=== PATIENT | female | born 1965 | race Caucasian/White ===

== ENCOUNTER 2016-10-02 23:03 | Emergency (ER) | payer SELFPAY ==
[2016-10-03 00:09] VITALS: BP 130/87; PULSE 57; TEMP 98.1; BMI 31.4
--- NOTE | 2016-10-03 01:35 | PDOC ---
History of Present Illness - General Chief Complaint: Pain Stated Complaint: CHEST/BACK PAIN Time Seen by Provider: 10/03/16 01:08 History Source: Patient, Family Exam Limitations: No Limitations, Language Barrier (Granddaughter translates) - History of Present Illness Initial Comments: 10/03/16 01:35 The patient is a 51F with no PMH who presents to the ED with 1.5 days of pain on her R side. The pain is in her back and radiates to her head and down her leg. The pain is paraspinal. There is no one point which hurts the most. She is present with her daughter and granddaughter (granddaughter is translating). No fever, chills. She feels slightly nauseous. All: none Past History - Past Medical History Allergies/Adverse Reactions: Allergies Allergy/AdvReac Type Severity Reaction Status Date / Time No Known Allergies Allergy Verified 10/03/16 01:27 Home Medications: Ambulatory Orders NK [No Known Home Medication] 10/03/16 - Psycho/Social/Smoking Cessation Hx Suicidal Ideation: No Smoking History: Never smoked Have you smoked in the past 12 months: No Information on smoking cessation initiated: No Hx Alcohol Use: No Drug/Substance Use Hx: No Review of Systems - Review of Systems Able to Perform ROS?: Yes Is the patient limited Kyrgyz proficient: Yes Constitutional: No: Chills, Fever Respiratory: Yes: Shortness of Breath. No: Cough Cardiac (ROS): Yes: Chest Pain ABD/GI: Yes: Nausea. No: Constipated, Diarrhea, Vomiting : No: Burning, Dysuria Neurological: Yes: Headache. No: Numbness, Tingling, Weakness *Physical Exam - Vital Signs Last Vital Signs Temp Pulse Resp BP Pulse Ox 98.1 F 57 L 14 130/87 100 10/03/16 00:06 10/03/16 00:06 10/03/16 00:06 10/03/16 00:06 10/03/16 00:06 - Physical Exam General Appearance: Yes: Nourished, Appropriately Dressed HEENT: positive: Normal Voice, Hearing Grossly Normal Neck: positive: Tender lateral Respiratory/Chest: positive: Lungs Clear, Normal Breath Sounds. negative: Chest Tender, Respiratory Distress, Accessory Muscle Use, Labored Respiration, Paradoxal Breathing, Crackles, Rales, Rhonchi, Stridor, Wheezing Cardiovascular: positive: Regular Rhythm, S1, S2, Bradycardia. negative: Diastolic Murmur, Systolic Murmur, Irregularly Irregular Gastrointestinal/Abdominal: positive: Flat, Soft. negative: Tender, Protuberent , Distended, Guarding, Rebound Musculoskeletal: positive: Vertebral Tenderness, Other (paraspinal tenderness on R back). negative: CVA Tenderness (R), CVA Tenderness (L) Extremity: negative: Swelling, Calf Tenderness Integumentary: positive: Dry, Warm. negative: Cold, Clammy, Swelling Neurologic: positive: Alert, Normal Mood/Affect, Motor Strength 5/5 Heart Score/ECG Review - ECG Intrepretation Rhythm: Regular Rhythm - ECG Impressions Normal ECG: Yes Bradycardia: Yes Comment:: 10/03/16 01:39 sinus bradycardia ED Treatment Course - LABORATORY CBC & Chemistry Diagram: 10/03/16 02:00 10/03/16 02:00 Medical Decision Making - Medical Decision Making 10/03/16 01:48 The patient is a 51 F with no PMH who presents to the ED with R sided body pain. The pain started yesterday and goes from her head to her toe. I will work her up to r/o ACS, PE, and pulm infiltrate. Will reassess when labs return. 10/03/16 03:51 Patient's labs WNL. Instructed pt to follow up with PCP and take ibuprofen as needed for pain. *DC/Admit/Observation/Transfer Diagnosis at time of Disposition: Back pain Qualifiers: Back pain location: thoracic back pain Chronicity: acute Back pain laterality: right Qualified Code(s): M54.6 - Pain in thoracic spine - Discharge Dispostion Disposition: HOME Condition at time of disposition: Improved Admit: No - Patient Instructions Printed Discharge Instructions: Back Pain (Alternative Therapy), DI for Thoracic Back Pain Additional Instructions: Please return to the ER if symptoms persist, worsen, or if new symptoms arise. Please follow up with your primary care doctor about your symptoms. Please take ibuprofen as needed for pain. - Attestations Physician Attestion: 10/03/16 05:28 I, Dr. Nikos Ortega, attest that this document has been prepared under my direction and personally reviewed by me in its entirety. I further attest, that it accurately reflects all work, treatment, procedures, and medical decision- making performed by me.
--- NOTE | 2016-10-03 01:50 | PDOC ---
Attending Attestation - Resident Resident Name: Nikos Ortega - ED Attending Attestation I have performed the following: I have examined & evaluated the patient, The case was reviewed & discussed with the resident, I agree w/resident's findings & plan, Exceptions are as noted - HPI HPI: 10/03/16 01:48 Multiple complaints including chest pain at LSB. Pt denies medical history - Physicial Exam PE: 10/03/16 01:49 *Physical Exam General Appearance: Yes: Appropriately Dressed. No: Apparent Distress, Intoxicated HEENT: positive: EOMI, LUAN, Normal ENT Inspection, Normal Voice, TMs Normal, Pharynx Normal. negative: Pale Conjunctivae, Photophobia, Scleral Icterus (R), Scleral Icterus (L) Neck: positive: Trachea midline, Normal Thyroid, Supple. negative: Tender, Rigid, Carotid bruit, Stridor, Lymphadenopathy (R), Lymphadenopathy (L), Thyromegaly Respiratory/Chest: positive: Lungs Clear, Normal Breath Sounds. negative: Chest Tender, Respiratory Distress, Accessory Muscle Use, Labored Respiration, RES, Crackles, Rales, Rhonchi, Stridor, Wheezing, Dullness Cardiovascular: positive: Regular Rhythm, Regular Rate, S1, S2. negative: Edema , JVD, Murmur, Bradycardia, Tachycardia Vascular Pulses: Dorsalis-Pedis (R): 2+, Doralis-Pedis (L): 2+ Gastrointestinal/Abdominal: positive: Normal Bowel Sounds, Flat, Soft. negative : Tender, Organomegaly, Pulsatile Mass, Increased Bowel Sounds, Decreased BS, Distended, Guarding, Rebound, Hernia, Hepatomegaly, Spleenomegaly Lymphatic: negative: Adenopathy, Tenderness Musculoskeletal: positive: Normal Inspection. negative: CVA Tenderness, Decreased Range of Motion Extremity: positive: Normal Capillary Refill, Normal Inspection, Normal Range of Motion, Pelvis Stable. negative: Tender, Pedal Edema, Swelling, Erythema Integumentary: positive: Normal Color, Dry, Warm. 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 negative: EOM Palsy, Facial Droop, Sensory Deficit - Medical Decision Making 10/03/16 19:32 patient discharged to follow up primary care
[2016-10-03] MEDS ORDERED: KETOROLAC TROMETHAMINE 30 MG/1 ML VIAL IVPUSH ONE (02:06)
[2016-10-03] MEDS ORDERED: KETOROLAC TROMETHAMINE 30 MG/1 ML VIAL ONE (02:07)
[2016-10-03 02:09] LABS: BASOPHIL 0.9 % (0-2.0); EOSINOPHIL 8.6 % (0-4.5); MCH 30.4 pg (25.7-33.7); MCHC 34.3 g/dl (32.0-36.0); MEAN CELL VOLUME 88.6 fl (80-96); MEAN PLT VOLUME 8.3 fl (7.5-11.1); NEUTROPHILS 53.3 % (42.8-82.8); PLATELET COUNT 241 K/MM3 (134-434); RDW 12.8 % (11.6-15.6); WHITE BLOOD COUNT 6.1 K/mm3 (4.0-10.0)
[2016-10-03 02:36] LABS: ALBUMIN 4.2 g/dl (3.4-5.0); ANION GAP 7 (8-16); BILIRUBIN,TOTAL 0.4 mg/dL (0.2-1.0); CALCIUM 9.3 mg/dL (8.5-10.1); CO2 30 mmol/L (21-32); CPK 121 IU/L (26-192); CREATININE 0.7 mg/dL (0.55-1.02); GLUCOSE,RANDOM 100 mg/dL (74-106); SGOT/AST 16 U/L (15-37); SGPT/ALT 28 U/L (12-78); TOT PROT 7.5 g/dl (6.4-8.2)
[2016-10-03 02:38] LABS: ALK PHOS 137 U/L (45-117)
[2016-10-03 02:40] LABS: TROPONIN I < 0.02 ng/ml (0.00-0.05)
--- NOTE | 2016-10-03 10:51 | EKG ---
Test Reason : Blood Pressure : / mmHG Vent. Rate : 057 BPM Atrial Rate : 057 BPM P-R Int : 174 ms QRS Dur : 090 ms QT Int : 414 ms P-R-T Axes : 018 021 026 degrees QTc Int : 402 ms SINUS BRADYCARDIA OTHERWISE NORMAL ECG NO PREVIOUS ECGS AVAILABLE Confirmed by INDIRA MCDONNELL MD ([id number]) on 10/03/2016 10:51:19 AM Referred By: Confirmed By:INDIRA MCDONNELL MD
== END 2016-10-03 06:08 | disposition home or self-care (01) ==
LOC: JER 23:03
PROC: 3E0333Z Introduction of Anti-inflammatory into Peripheral Vein, Percutaneous Approach (ICD-10-PCS; principal; 2016-10-02)
DX: M54.6 Pain in thoracic spine (principal)
CPT/HCPCS: 36415; 71020-TC; 80053; 84484; 84703; 85025; 85379; 93005; 93010; 99284-25

== ENCOUNTER 2017-02-24 17:19 | Emergency (ER) | payer SELFPAY ==
[2017-02-24 17:30] VITALS: BMI 34.2
--- NOTE | 2017-02-24 17:31 | PDOC ---
Rapid Medical Evaluation Chief Complaint: Allergic Reaction Time Seen by Provider: 02/24/17 17:25 Medical Evaluation: Allergies Allergy/AdvReac Type Severity Reaction Status Date / Time No Known Allergies Allergy Verified 02/24/17 17:25 02/24/17 17:28 I have performed a brief in-person evaluation of this patient. The patient presents with a chief complaint of abdominal pain and shortness of breath after eating shrimp today. Also reports vomiting. Pertinent physical exam findings: leaning forward in wheelchair, rapid breathing appears anxious non tender abdomen but refuses to sit up due to abdominal pain I have ordered the following: iv access, if fluids The patient will proceed to the ED for further evaluation.
[2017-02-24] MEDS ORDERED: ONDANSETRON 4 MG/2 ML VIAL IVPUSH ONE (19:28)
[2017-02-24] MEDS ORDERED: SODIUM CHLORIDE 0.9% 1000 ML INFUS.BAG IV ONE (19:28)
[2017-02-24] MEDS ORDERED: ONDANSETRON 4 MG/2 ML VIAL ONE (19:38)
[2017-02-24] MEDS ORDERED: FAMOTIDINE 20 MG/50 ML IVPB 20 MG/50 ML MG IVPB ONE (19:38)
--- NOTE | 2017-02-24 19:49 | PDOC ---
History of Present Illness - General Chief Complaint: Allergic Reaction Stated Complaint: ALLERGIC REACTION Time Seen by Provider: 02/24/17 17:25 - History of Present Illness Initial Comments: 02/24/17 19:45 CHIEF COMPLAINT: abdominal pain, vomiting HISTORY OF PRESENT ILLNESS: 51 yo F with no PMH presents to fast track with nausea, vomiting, and abdominal pain x 2 hours s/p eating shrimp. Patient reports pain "all over stomach" and headache and dizziness. Patient denies diarrhea or rectal bleeding. PAST MEDICAL HISTORY: Denies past medical history FAMILY HISTORY: Denies SOCIAL HISTORY: Denies tobacco, alcohol, illicit drug use. SURGICAL HISTORY: Denies ALLERGIES: No known drug allergies REVIEW OF SYSTEMS General/Constitutional: Denies fever or chills. Denies weakness, weight change. HEENT: Denies change in vision. Denies ear pain or discharge. Denies sore throat. Cardiovascular: Denies chest pain or shortness of breath. Respiratory: Denies cough, wheezing, or hemoptysis. Gastrointestinal: Nausea, 2 episodes of vomiting. Denies diarrhea or constipation. Denies rectal bleeding. Genitourinary: Denies dysuria, frequency, or change in urination. Musculoskeletal: Denies joint or muscle swelling or pain. Denies neck or back pain. Neurologic: Headache, dizzines. Denies loss of consciousness, or loss of sensation. PHYSICAL EXAM General Appearance: Well-appearing, appropriately dressed. No apparent distress. HEENT: EOMI, PERRLA, normal ENT inspection, normal voice, TMs normal, pharynx normal. No conjunctival pallor. No photophobia, scleral icterus. Respiratory/Chest: Lungs CTAB. No shortness of breath, chest tenderness, respiratory distress, accessory muscle use. No crackles, rales, rhonchi, stridor , wheezing, dullness Cardiovascular: RRR. S1, S2. No JVD, murmur, bradycardia, tachycardia. Gastrointestinal/Abdominal: Epigastric tenderness, negative Jimenez's sign, no tenderness to RLQ. No organomegaly, pulsatile mass, guarding, hernia, hepatomegaly, splenomegaly. Musculoskeletal/Extremities: Normal inspection. FROM of all extremities, normal capillary refill. Pelvis Stable. No CVA tenderness. No tenderness to extremities, pedal edema, swelling, erythema or deformity. Integumentary: Appropriate color, dry, warm. 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 Fully oriented, alert. Appropriate mood/affect. Motor strength 5/5. No appreciable EOM palsy, facial droop or sensory deficit. 02/24/17 19:49 Past History - Past Medical History Allergies/Adverse Reactions: Allergies Allergy/AdvReac Type Severity Reaction Status Date / Time No Known Allergies Allergy Verified 02/24/17 17:25 Home Medications: Ambulatory Orders Meclizine HCl 25 mg PO TID #12 tablet 02/25/17 Ondansetron [Zofran *Odt*] 8 mg SL TID PRN #12 od.tablet 02/25/17 COPD: No DVT: No Psychiatric Problems: Yes (DEPRESSION) - Immunization History Immunization Up to Date: Yes - Suicide/Smoking/Psychosocial Hx Smoking History: Never smoked Have you smoked in the past 12 months: No Information on smoking cessation initiated: No Hx Alcohol Use: No Drug/Substance Use Hx: No Substance Use Type: None *Physical Exam - Vital Signs Last Vital Signs Temp Pulse Resp BP Pulse Ox 98.3 F 72 16 120/66 100 02/24/17 17:25 02/24/17 17:25 02/24/17 17:25 02/24/17 17:25 02/24/17 17:25 ED Treatment Course - LABORATORY CBC & Chemistry Diagram: 02/24/17 21:00 02/24/17 21:44 - ADDITIONAL ORDERS Additional order review: Laboratory Results 02/24/17 18:46 POC Glucometer [id number] 02/24/17 18:46 POC Glucometer [id number] Medical Decision Making - Medical Decision Making 02/24/17 19:51 51 yo F with no PMH presents to fast track with nausea, vomiting, and abdominal pain x 2 hours s/p eating shrimp. -IVF, Zofran, Pepcid Will reevaluate. 02/25/17 21:32 Patient reassessed, states she is still feeling nauseous. -Tigan 02/25/17 23:15 Patient reassessed, states her nausea has mostly resolved but continues to have abdominal pain. -Protonix, Bentyl 02/25/17 00:34 Patient reassessed, states she feels better now and is ready to go home. Zofran rx sent to pharm. *DC/Admit/Observation/Transfer Diagnosis at time of Disposition: Food poisoning Qualifiers: Encounter type: initial encounter Injury intent: accidental or unintentional Qualified Code(s): T62.91XA - Toxic effect of unspecified noxious substance eaten as food, accidental (unintentional), initial encounter - Discharge Dispostion Disposition: HOME Condition at time of disposition: Stable Admit: No - Prescriptions Prescriptions: Meclizine HCl 25 mg PO TID #12 tablet Ondansetron [Zofran *Odt*] 8 mg SL TID PRN #12 od.tablet PRN Reason: Nausea And/Or Vomiting - Referrals - Patient Instructions Printed Discharge Instructions: DI for Food Poisoning Additional Instructions: Please take medications as prescribed. Drink plenty of fluids to stay hydrated. Follow up with your primary care doctor THIS WEEK for continued monitoring. If you develop chest pain, shortness of breath, palpitations, worsening abdominal pain, fever, chills, or any new or worsening symptoms, please return to the ER. Por favor, tome los medicamentos segn lo recetado. Christine muchos lquidos para mantenerse hidratado. Papa un seguimiento con pena mdico de atencin primaria ESTA SEMANA para un monitoreo continuo. Si desarrolla dolor de pecho, dificultad para respirar, palpitaciones, empeoramiento del dolor abdominal, fiebre, escalofros o cualquier sntoma nuevo o que empeora, vuelva a la pili de emergencias. Print Language: MAORI - Post Discharge Activity
--- NOTE | 2017-02-24 20:00 | PDOC ---
*Physical Exam - Vital Signs Last Vital Signs Temp Pulse Resp BP Pulse Ox 98.3 F 72 16 120/66 100 02/24/17 17:25 02/24/17 17:25 02/24/17 17:25 02/24/17 17:25 02/24/17 17:25 ED Treatment Course - LABORATORY CBC & Chemistry Diagram: 02/24/17 21:00 02/24/17 21:44 - ADDITIONAL ORDERS Additional order review: Laboratory Results 02/24/17 18:46 POC Glucometer [id number] 02/24/17 18:46 POC Glucometer [id number] - Medications Given in the ED: ED Medications Discontinued Medications Generic Name Dose Route Start Last Admin Trade Name Freq PRN Reason Stop Dose Admin Ondansetron HCl 4 mg 02/24/17 19:28 02/24/17 19:49 Zofran Injection IVPUSH 02/24/17 19:29 4 mg ONCE ONE Administration Sodium Chloride 1,000 ml 02/24/17 19:28 02/24/17 19:49 Normal Saline - IV 02/24/17 19:29 1,000 ml ONCE ONE Administration Medical Decision Making - Medical Decision Making 02/24/17 20:00 agree with care from SCOTT Alarcon *DC/Admit/Observation/Transfer Diagnosis at time of Disposition: Food poisoning - Discharge Dispostion Disposition: HOME Condition at time of disposition: Stable - Prescriptions Prescriptions: Meclizine HCl 25 mg PO TID #12 tablet Ondansetron [Zofran *Odt*] 8 mg SL TID PRN #12 od.tablet PRN Reason: Nausea And/Or Vomiting - Referrals - Patient Instructions Printed Discharge Instructions: DI for Food Poisoning Additional Instructions: Please take medications as prescribed. Drink plenty of fluids to stay hydrated. Follow up with your primary care doctor THIS WEEK for continued monitoring. If you develop chest pain, shortness of breath, palpitations, worsening abdominal pain, fever, chills, or any new or worsening symptoms, please return to the ER. Por favor, tome los medicamentos segn lo recetado. Christine muchos lquidos para mantenerse hidratado. Papa un seguimiento con pena mdico de atencin primaria ESTA SEMANA para un monitoreo continuo. Si desarrolla dolor de pecho, dificultad para respirar, palpitaciones, empeoramiento del dolor abdominal, fiebre, escalofros o cualquier sntoma nuevo o que empeora, vuelva a la pili de emergencias. Print Language: KHMER - Post Discharge Activity
[2017-02-24] MEDS ORDERED: TRIMETHOBENZAMIDE HCL 200MG/2ML INJ IM ONE (21:02)
[2017-02-24 21:19] LABS: URINE APPEARANCE SLCLOUDY; URINE BILIRUBIN NEGATIVE (NEGATIVE); URINE BLOOD NEGATIVE (NEGATIVE); URINE COLOR YELLOW; URINE GLUCOSE (UA) NEGATIVE (NEGATIVE); URINE KETONE TRACE (NEGATIVE); URINE NITRITE NEGATIVE (NEGATIVE); URINE PROTEIN NEGATIVE (NEGATIVE); URINE UROBILINOGEN NEGATIVE mg/dL (0.2-1.0)
[2017-02-24 21:20] LABS: BASO % 0.5 % (0-2.0); EOS % 1.2 % (0-4.5); HEMATOCRIT 42.5 % (32.4-45.2); HEMOGLOBIN 14.1 GM/dL (10.7-15.3); LYMPH % 11.7 % (8-40); MCH 29.6 pg (25.7-33.7); MCHC 33.3 g/dl (32.0-36.0); MEAN CELL VOLUME 88.9 fl (80-96); MEAN PLT VOLUME 9.1 fl (7.5-11.1); MONO % 2.7 % (3.8-10.2); NEUT % 83.9 % (42.8-82.8); PLATELET COUNT 285 K/MM3 (134-434); RBC 4.78 M/mm3 (3.60-5.2); RDW 12.5 % (11.6-15.6); WHITE BLOOD COUNT 13.8 K/mm3 (4.0-10.0)
[2017-02-24 21:24] LABS: HCG,QUALITATIVE URINE NEGATIVE
[2017-02-24 21:37] LABS: URINE LEUK ESTERASE 2+ (NEGATIVE)
[2017-02-24 21:39] LABS: EPI CELLS RARE /HPF (FEW); URINE MUCUS RARE
[2017-02-24] MEDS ORDERED: FAMOTIDINE IV 20 MG/12 ML VIAL IVPUSH SCH (22:00)
[2017-02-24 23:01] LABS: ALBUMIN 3.4 g/dl (3.4-5.0); ALK PHOS 106 U/L (45-117); ANION GAP 7 (8-16); BILIRUBIN,TOTAL 0.4 mg/dL (0.2-1.0); BLOOD UREA NITROGEN 11 mg/dL (7-18); CALCIUM 8.1 mg/dL (8.5-10.1); CHLORIDE 109 mmol/L (98-107); CO2 26 mmol/L (21-32); CREATININE 0.5 mg/dL (0.55-1.02); GLUCOSE,RANDOM 109 mg/dL (74-106); LIPASE 190 U/L (73-393); SGOT/AST 14 U/L (15-37); SGPT/ALT 31 U/L (12-78); SODIUM 142 mmol/L (136-145); TOT PROT 6.6 g/dl (6.4-8.2)
[2017-02-24] MEDS ORDERED: DICYCLOMINE HCL 20 MG TABLET PO ONE (23:16)
[2017-02-24] MEDS ORDERED: PANTOPRAZOLE SODIUM 80 MG in SODIUM CHLORIDE 100 ML IVPB SCH (23:30)
[2017-02-24] MEDS ORDERED: PANTOPRAZOLE SODIUM 40 MG VIAL ONE (23:39)
[2017-02-24] MEDS ORDERED: DICYCLOMINE HCL 10 MG CAPSULE ONE (23:39)
[2017-02-24] MEDS ORDERED: PANTOPRAZOLE SODIUM 40 MG VIAL IVPB ONE (23:42)
[2017-02-25 00:46] VITALS: BP 114/70; PULSE 64; TEMP 98
--- NOTE | 2017-02-28 13:32 | EKG ---
Test Reason : Blood Pressure : / mmHG Vent. Rate : 057 BPM Atrial Rate : 057 BPM P-R Int : 174 ms QRS Dur : 098 ms QT Int : 430 ms P-R-T Axes : 052 016 019 degrees QTc Int : 418 ms SINUS BRADYCARDIA OTHERWISE NORMAL ECG WHEN COMPARED WITH ECG OF 03-OCT-2016 00:56, NO SIGNIFICANT CHANGE WAS FOUND Confirmed by MD JOSUÉ, VEDA ([id number]) on 02/28/2017 1:32:11 PM Referred By: Confirmed By:VEAD MOSES MD
== END 2017-02-25 00:52 | disposition home or self-care (01) ==
LOC: JER 17:19
PROC: 3E033GC Introduction of Other Therapeutic Substance into Peripheral Vein, Percutaneous Approach (ICD-10-PCS; principal; 2017-02-24)
PROC: 3E033GC Introduction of Other Therapeutic Substance into Peripheral Vein, Percutaneous Approach (ICD-10-PCS; 2017-02-24)
DX: T61.781A Other shellfish poisoning, accidental (unintentional), initial encounter (principal); R11.2 Nausea with vomiting, unspecified; Y92.89 Other specified places as the place of occurrence of the external cause
CPT/HCPCS: 36415; 80053; 81003; 81015; 82962; 83690; 84703; 85025; 93005; 93010; 99284-25

== ENCOUNTER 2020-07-13 17:09 | Emergency (ER) | payer SELFPAY ==
[2020-07-13 17:33] VITALS: TEMP 98; BMI 33.7
[2020-07-13] MEDS ORDERED: KETOROLAC TROMETHAMINE 15 MG/ML VIAL IVPUSH ONE (18:21)
[2020-07-13] MEDS ORDERED: LIDOCAINE 5% TOPICAL PATCH TP ONE (18:21)
[2020-07-13] MEDS ORDERED: KETOROLAC TROMETHAMINE 15 MG/ML VIAL ONE (18:48)
[2020-07-13] MEDS ORDERED: LIDOCAINE 5% TOPICAL PATCH ONE (18:48)
[2020-07-13 18:52] LABS: BASO % 0.9 % (0-2.0); EOS % 8.2 % (0-4.5); HEMATOCRIT 41.6 % (32.4-45.2); HEMOGLOBIN 14.2 GM/dL (10.7-15.3); LYMPH % 23.1 % (8-40); MCH 31.8 pg (25.7-33.7); MCHC 34.2 g/dl (32.0-36.0); MEAN PLT VOLUME 8.3 fl (7.5-11.1); MONO % 6.5 % (3.8-10.2); NEUT % 61.3 % (42.8-82.8); PLATELET COUNT 234 K/MM3 (134-434); RBC 4.47 M/mm3 (3.60-5.2); RDW 12.9 % (11.6-15.6); WHITE BLOOD COUNT 6.1 K/mm3 (4.0-10.0)
[2020-07-13 19:13] LABS: INR 0.93 (0.83-1.09); PROTHROMBIN TIME (PATIENT) 11.5 SEC (9.7-13.0)
[2020-07-13 19:14] LABS: CHLORIDE 106 mmol/L (98-107); SODIUM 140 mmol/L (136-145)
[2020-07-13 19:15] LABS: ACTIVATED PTT 27.7 SECONDS (25.2-36.5)
[2020-07-13 19:16] LABS: CALCIUM 9.3 mg/dL (8.5-10.1)
[2020-07-13 19:17] LABS: ALBUMIN 4.3 g/dl (3.4-5.0); ANION GAP 5 MMOL/L (8-16); BLOOD UREA NITROGEN 10.8 mg/dL (7-18); CO2 28 mmol/L (21-32); GLUCOSE,RANDOM 109 mg/dL (74-106); MAGNESIUM 2.4 mg/dL (1.8-2.4)
[2020-07-13 19:19] LABS: CREATININE 0.7 mg/dL (0.55-1.3); SGOT/AST 74 U/L (15-37); SGPT/ALT 126 U/L (13-61)
[2020-07-13 19:22] LABS: BILIRUBIN,TOTAL 0.5 mg/dL (0.2-1); TOT PROT 7.9 g/dl (6.4-8.2)
[2020-07-13 19:23] LABS: ALK PHOS 135 U/L (45-117)
[2020-07-13 19:25] LABS: N-TERMINAL BNP 14.5 pg/ml (5-125)
[2020-07-13] MEDS ORDERED: LIDOCAINE PATCH REMOVAL MC SCH (22:00)
[2020-07-13] MEDS ORDERED: IBUPROFEN 400 MG TABLET (FP) PO ONE ×2 (22:51→22:52)
[2020-07-13 22:54] VITALS: BP 138/78; PULSE 72
== END 2020-07-13 22:54 | disposition home or self-care (01) ==
LOC: JER 17:09
PROC: 3E0333Z Introduction of Anti-inflammatory into Peripheral Vein, Percutaneous Approach (ICD-10-PCS; principal; 2020-07-13)
DX: R07.9 Chest pain, unspecified (principal); R74.01 Elevation of levels of liver transaminase levels
CPT/HCPCS: 36415; 71045-TC-FY; 80053; 82550; 83735; 83880; 84484; 84703; 85025; 85379; 85610; 85730; 93005; 93010; 99284-25

== ENCOUNTER 2021-07-24 21:55 | Emergency (ER) | payer SELFPAY ==
[2021-07-24 22:02] VITALS: BP 120/81; PULSE 78; TEMP 98.6; BMI 31.2
[2021-07-24] MEDS ORDERED: ACETAMINOPHEN 1000 MG/100 ML BAG IVPB ONE (22:23)
[2021-07-24] MEDS ORDERED: MAG HYDROX/AL HYDROX/SIMETH 30 ML UNIT-DOSE CUP PO ONE (22:23)
[2021-07-24] MEDS ORDERED: ONDANSETRON 4 MG/2 ML VIAL IVPUSH ONE (22:23)
[2021-07-24] MEDS ORDERED: LACTATED RINGERS SOLUTION 1000 ML INFUS.BAG IV ONE (22:23)
[2021-07-24] MEDS ORDERED: FAMOTIDINE 20 MG/50 ML IVPB 20 MG/50 ML MG IVPB ONE ×2 (22:25→22:32)
[2021-07-24] MEDS ORDERED: ONDANSETRON 4 MG/2 ML VIAL ONE (22:32)
[2021-07-24] MEDS ORDERED: MAG HYDROX/AL HYDROX/SIMETH 30 ML UNIT-DOSE CUP ONE (22:32)
[2021-07-24] MEDS ORDERED: ACETAMINOPHEN INJECTION 100 ML IVPB ONE (22:44)
[2021-07-24 22:48] LABS: BASO % 0.5 % (0-2.0); HEMOGLOBIN 14.6 GM/dL (10.7-15.3); MCH 31.1 pg (25.7-33.7); MCHC 33.3 g/dl (32.0-36.0); MEAN CELL VOLUME 93.5 fl (80-96); MEAN PLT VOLUME 7.7 fl (7.5-11.1); MONO % 4.1 % (3.8-10.2); NEUT % 79.4 % (42.8-82.8); PLATELET COUNT 251 10^3/uL (134-434); RDW 12.2 % (11.6-15.6); WHITE BLOOD COUNT 9.6 K/mm3 (4.0-10.0)
[2021-07-24 23:16] LABS: ALBUMIN 4.2 g/dl (3.4-5.0); BLOOD UREA NITROGEN 14.8 mg/dL (7-18)
[2021-07-24 23:19] LABS: CREATININE 0.8 mg/dL (0.55-1.3)
[2021-07-24 23:21] LABS: BILIRUBIN,TOTAL 0.2 mg/dL (0.2-1); TOT PROT 8.1 g/dl (6.4-8.2)
[2021-07-25 01:32] LABS: EPI CELLS 11 /uL (0-25.1); HYALINE CASTS 0 /uL (0-3.1); PH,URINE 6.5 (5.0-8.0); URINE APPEARANCE CLEAR; URINE BACTERIA 164 /uL (0-1359); URINE BILIRUBIN NEGATIVE (NEGATIVE); URINE COLOR YELLOW; URINE GLUCOSE (UA) NEGATIVE (NEGATIVE); URINE KETONE NEGATIVE (NEGATIVE); URINE LEUK ESTERASE 2+ (NEGATIVE); URINE NITRITE NEGATIVE (NEGATIVE); URINE PROTEIN NEGATIVE (NEGATIVE); URINE RBC 4 /uL (0-23.9); URINE UROBILINOGEN 0.2 mg/dL (0.2-1.0); URINE WBC 130 /uL (0-25.8)
== END 2021-07-25 01:18 | disposition home or self-care (01) ==
LOC: JER 21:55
PROC: 3E0333Z Introduction of Anti-inflammatory into Peripheral Vein, Percutaneous Approach (ICD-10-PCS; principal; 2021-07-24)
PROC: 3E033GC Introduction of Other Therapeutic Substance into Peripheral Vein, Percutaneous Approach (ICD-10-PCS; 2021-07-24)
PROC: 3E033GC Introduction of Other Therapeutic Substance into Peripheral Vein, Percutaneous Approach (ICD-10-PCS; 2021-07-24)
DX: R11.2 Nausea with vomiting, unspecified (principal); R19.7 Diarrhea, unspecified; R10.13 Epigastric pain
CPT/HCPCS: 0241U-QW; 36415; 71045-TC-FY; 76705-TC; 80053; 81003; 83690; 84484; 85025; 87086; 93005; 93010; 99285-25